=== PATIENT | female | born 1935 | race Caucasian/White ===

== ENCOUNTER 2024-06-13 12:16 | Outpatient (AMB) | payer OTHER, SELFPAY ==
--- NOTE | 2024-06-13 12:24 | MHC.OFFVIS ---
Vital Signs 06/13/24 12:26 Height 5 ft 4 in Weight 174 lb 2.643 oz BMI 29.9 BP 131/68 Blood Pressure Location Rt brachial Position Sitting Pulse 69 Intake Visit Reasons: Dysphagia Intake Note: Patient in office today for dysphagia. CC: Patient c/o sore throat, sometimes choking with foods and when taking her pills. She also reports increased phlegm, and seeing blood when she spits out. Per patient she has an introluminal polyp in her esophagus. Onset of symptoms about a year ago per patient. Patient has never had a colonoscopy done. Regional Engagement Consultant Required: No Accompanied by: Daughter Allergies No Known Drug Allergies Allergy (Unknown, Verified 06/13/24 12:33) none HPI Comments Details: 89 y.o F with PMH of Afib on eliquis, CHF, HTN, hx of TIA, chronic pericardial effusion who is here for abnl barium swallow. Reports a year of chronic cough with sensation of sputum in upper throat that she has to clear and when she does spit up sees streaks of blood. Sx are most pronounced in the morning with pain in upper throat. Was seen by ENT and pulm. Had barium swallow which showed a an intraluminal lower esophagus polyp for which direct visualization was recommended. Of note referral states rectal bleeding but pt reports NO rectal bleeding. Only upper GI sx as above. No fam hx of crc. Pt has never had a colo. Ex smoker. PFSH Surgical History H/O angioplasty Total knee replacement status H/O: hysterectomy Family History Daughter Thyroid cancer Father Testicular cancer Social History Alcohol intake: current Alcohol intake frequency: holidays/special occasions only Patient Tobacco Use Status: Former Tobacco user Non Cigarette Tobacco use Quit date or years: 50 years ago Use of substances other than those prescribed or required for medical reasons: No Physical Exam Vital Signs: Last Vital Signs Pulse 69 06/13/24 12:26 BP 131/68 06/13/24 12:26 BMI result Body Mass Index 29.9 Assessment & Plan Assessment & Plan (1) Esophageal polyp: Code(s): K22.81 - Esophageal polyp Category: Medical (2) Atrial fibrillation: Code(s): I48.91 - Unspecified atrial fibrillation Category: Medical (3) Chronic anticoagulation: Code(s): Z79.01 - nursing home (current) use of anticoagulants Category: Medical Plan 1. Describes hemoptysis and not hematemesis. Reviewed with the pt that based on the barium swallow result and location of the polyp, does not appear the cause of her chronic cough - no reflux noted on barium study. No narrowing noted. Barium pill passed without difficulty. THe polyp is in lower esophagus. However will get direct visualisation with empiric dilation of UES to see if that helps symptoms. Pt aware to HOLD eliquis x2 days. Will also request clearance from cardiology. Pt with hx of CHF and large pericardial effusion. Omeprazole 20 mg trial in the meantime. Follow up after EGD Medications: New omeprazole 20 mg PO DAILY 90 caps 1RF Coding Level of Care Code New Pt Level 4 (73578) Diagnoses Esophageal polyp K22.81 Atrial fibrillation I48.91 Chronic anticoagulation Z79.01
[2024-06-13 12:26] VITALS: BP 131/68; PULSE 69; BMI 29.9
== END 2024-06-13 13:25 | disposition home or self-care (01) ==
PROVIDERS: PCP Internal Medicine; Visit Provider Internal Medicine
DX: K22.81 Esophageal polyp (principal); I48.91 Unspecified atrial fibrillation; Z79.01 Long term (current) use of anticoagulants
CPT/HCPCS: 99204

== ENCOUNTER → 2024-06-13 12:16 | Outpatient (BNVA) | payer OTHER, SELFPAY | PROVIDERS: PCP Internal Medicine; Visit Provider Internal Medicine ==

== ENCOUNTER 2024-08-02 10:08 | Day surgery (SDC) | payer MEDICARE, SELFPAY ==
[2024-07-29 11:38] VITALS: BMI 29.9
[2024-08-02 10:37] VITALS: BP 131/67; PULSE 69; RESP 20; TEMP 36.6; O2SAT 97
--- NOTE | 2024-08-02 10:49 | HO.ANESPROP2 ---
HPI - Anesthesia Eval Consult details Narrative: 89 yo female patient for EGD with dilatation PMFSH Active Problems Active Problems: All Active Problems Chronic anticoagulation (Acute) Atrial fibrillation (Acute). Last dose of eliquis 07/30/24 Esophageal polyp (Acute) H/o CHF last year H/o TIA- years ago Past Medical History Medical History Chronic pericardial effusion TIA (transient ischemic attack) HTN (hypertension) CHF (congestive heart failure) Afib Family History Family History Daughter Thyroid cancer Father Testicular cancer Family history of problems with anesthesia: No Surgical History Surgical History H/O angioplasty Total knee replacement status H/O: hysterectomy History of Problems with Anesthesia: No Social History Social History Alcohol intake: current Alcohol intake frequency: holidays/special occasions only Patient Tobacco Use Status: Former Tobacco user Advance Directives: No Advance Directives Information Provided: Yes Advance Directives on File: No Meds Allergies Allergy/AdvReac Type Severity Reaction Status Date / Time No Known Drug Allergies Allergy Unknown none Verified 06/13/24 12:33 Home Medications ?Medication ?Instructions ?Recorded ?Confirmed ?Last Taken ?Type apixaban 5 mg tablet (Eliquis) 5 mg PO BID 06/13/24 08/02/24 07/30/24 History ascorbate calcium (vitamin C) 500 500 mg PO DAILY 06/13/24 08/02/24 08/01/24 History mg tablet atorvastatin 80 mg tablet 80 mg PO DAILY 06/13/24 08/02/24 08/01/24 History calcium carbonate 1,250 mg PO BID 06/13/24 08/02/24 08/01/24 History cholecalciferol (vitamin D3) 50 50 mcg PO DAILY 06/13/24 08/02/24 08/01/24 History mcg (2,000 unit) capsule cranberry 1,000 mg capsule 4,200 mg PO DAILY 06/13/24 08/02/24 08/01/24 History diltiazem HCl 120 mg 120 mg PO DAILY 06/13/24 08/02/24 08/02/24 History capsule,extended release 24 hr furosemide 20 mg tablet 20 mg PO DAILY 06/13/24 08/02/24 08/01/24 History loratadine 10 mg tablet (Allergy 10 mg PO DAILY 06/13/24 08/02/24 08/01/24 History Relief (loratadine)) metoprolol tartrate 100 mg tablet 100 mg PO BID 06/13/24 08/02/24 08/02/24 History Exam Height,Weight and Vital Signs: Height 5 ft 4 in Weight 78.925 kg Last Vital Signs Temp 98 F 08/02/24 10:37 Pulse 69 08/02/24 10:37 Resp 20 08/02/24 10:37 BP 131/67 08/02/24 10:37 Pulse Ox 97 08/02/24 10:37 O2 Del Method Room Air 08/02/24 10:37 Airway Mallampati Class: II TM Dist: >3cm Neck ROM: Full Denture: Upper Loose/Missing/Broken Teeth: Yes (Full denture top. No teeth bottom) Heart: Irregularly irregular Lungs: CTAB Assessment and Plan Assessment Anesthesia Assessment: Anesthesia Plan Discussed and Chart Reviewed Final Anesthetic Review Family History of Problems with Anesthesia: No History of Problems with Anesthesia: No NPO: Yes ASA Class: III Final Preanesthetic Review: No Changes in Pt Med Stat, Meds/Allgs Chart Reviewed, Consent Obtained/Reviewed and Anes Risks/Benef Reviewed Patient Risk: Intermediate Procedure Risk: Low Assessment/Block/Sedation in SS: Assess/Block/Sedation-SS Anesthetic Plan Anesthetic Plan: TIVA Disposition: Standard PACU
--- NOTE | 2024-08-02 11:49 | MHC.SHP ---
Pre-Procedural Eval Section A - 24 Hr Update-Section A only Date of Service: 08/02/24 Section B - Complete if H&P > 30 days Chief Complaint: Esophageal polyp Details of Present Illness: H/O angioplasty Total knee replacement status H/O: hysterectomy Family History Daughter Thyroid cancer Father Testicular cancer Present Medications: see Short Stay Collaborative assessment Allergies: Allergies Allergy/AdvReac Type Severity Reaction Status Date / Time No Known Drug Allergies Allergy Unknown none Verified 06/13/24 12:33 Review of Systems Review of Systems Comment: Ten point ROS negative Exam Exam Comment: Gen appear: No acute distress HEENT: no icterus Chest: No overt resp distress Abd: soft, nontender, nondistended Psych: Stable affect, answering questions appropriately Neuro: A/Ox3 noted to move all extremities spontaneously Ext: no peripheral edema Plan Diagnosis/Plan: Unchanged I have reviewed the history and physical and performed a pertinent physical examination on my patient. No changes have occurred unless specified. Time Spent With Patient Time: Total time managing care of this patient today ____ minutes.
--- NOTE | 2024-08-02 13:03 | P.OP_ITS ---
Operative Note Operative Note Date of Service: 08/02/24 Narrative: Procedure: Esophagogastroduodenoscopy Endoscopist: Micaela Smiley MD Indication: Dysphagia, esophageal polyp Anesthesia Provider: Karuna Castanon CRNA Anesthesia Type: MAC ?? EGD Procedure:?? The procedure, indications, preparation and potential complications were reviewed with the patient, who indicated understanding and gave written informed consent to proceed. A physical exam was performed. The endoscope was introduced through the mouth, and advanced to the second part of duodenum. The mucosa was carefully examined on slow withdrawal of the endoscope. The patient tolerated the procedure well. There were no immediate complications.? ? EGD Findings:? * Esophagus:? Normal mucosa noted in the entire esophagus. The Z line was at 40 cm and irregular up to 38 cm. Middle and lower esophagus forceps biopsies were obtained to rule out eosinophilic esophagitis. A small hiatal hernia was noted. * Stomach:? Erythema and edema was noted in the cardia. Retroflexion was performed in the cardia and Hill grade III hiatal hernia was noted. * Duodenum:? There was a small 1 cm raised nodule in the second portion of the duodenum. Additional intervention: A soft tipped Savary wire was advanced through the biopsy channel and advanced to the antrum. A savary mita bougie was advanced over the guidewire and the esophagus was dilated to 18 mm. On relook there was a small superficial tear in the upper esophagus at 18 cm from the incisors. ? EGD Impressions:? * UES stricture (biopsy) * Gastritis * Hiatal hernia * Duodenal polyp (biopsy) ?? Recommendations:?? * An esophageal polyp was not appreciated on this exam * Dysphagia likely due to cricopharyngeal narrowing which was dilated today * Will obtain CT neck as pt reports neck tenderness and soreness * Resume anticoagulation in PM * Avoid NSAIDs. Above has been reviewed with the patient.
[2024-08-02 13:11] VITALS: BP 102/56; PULSE 77; RESP 16; TEMP 36.1; O2SAT 97
[2024-08-02 13:26] VITALS: BP 109/65; PULSE 66; RESP 16; O2SAT 97
[2024-08-02 13:41] VITALS: BP 117/63; PULSE 62; RESP 16; TEMP 36.1; O2SAT 96
== END 2024-08-02 14:32 | disposition home or self-care (01) ==
PROVIDERS: PCP Internal Medicine; Visit Provider Internal Medicine
PROC: (CPT 43248; principal; 2024-08-02 13:10)
DX: K22.81 Esophageal polyp (principal); R13.10 Dysphagia, unspecified; K22.2 Esophageal obstruction; K29.70 Gastritis, unspecified, without bleeding; K44.9 Diaphragmatic hernia without obstruction or gangrene; I48.91 Unspecified atrial fibrillation; I11.0 Hypertensive heart disease with heart failure; I50.9 Heart failure, unspecified; I31.39 Other pericardial effusion (noninflammatory); Z87.891 Personal history of nicotine dependence; Z79.01 Long term (current) use of anticoagulants; Z79.899 Other long term (current) drug therapy; Z86.73 Personal history of transient ischemic attack (TIA), and cerebral infarction without residual deficits; Z98.890 Other specified postprocedural states
CPT/HCPCS: 43248; 43239; 88305; 88313; C1769; J1100; J1596; J2003; J2704

== ENCOUNTER → 2024-08-02 10:08 | Outpatient (BNV) | payer MEDICARE, SELFPAY | PROVIDERS: PCP Internal Medicine; Visit Provider Internal Medicine | DX: K31.7 Polyp of stomach and duodenum (principal); R13.10 Dysphagia, unspecified | CPT/HCPCS: 43239; 43248 ==

== ENCOUNTER 2024-08-15 12:30 | Outpatient (AMB) | payer MEDICARE, SELFPAY ==
--- NOTE | 2024-08-15 12:32 | MHC.OFFVIS ---
Vital Signs 08/15/24 12:34 Height 5 ft 4 in Weight 169 lb 12.095 oz BMI 29.1 BP 146/73 H Blood Pressure Location Lt brachial Position Sitting Pulse 74 Intake Visit Reasons: s/p egd dilation Intake Note: More presents in the office as a follow up EGD w/ Dil. CC: She states that after procedure she had some phlegm and a burn in her throat but I let her know that it was probably due to the biopsy taken. Corporate Physical Security Supervisor Required: No Allergies No Known Drug Allergies Allergy (Unknown, Verified 08/15/24 12:40) none HPI Comments Details: 89 y.o F with PMH of Afib on eliquis, CHF, HTN, hx of TIA, chronic pericardial effusion who is here for abnl barium swallow. Reports a year of chronic cough with sensation of sputum in upper throat that she has to clear and when she does spit up sees streaks of blood. Sx are most pronounced in the morning with pain in upper throat. Was seen by ENT and pulm. Had barium swallow which showed a an intraluminal lower esophagus polyp for which direct visualization was recommended. Of note referral states rectal bleeding but pt reports NO rectal bleeding. Only upper GI sx as above. No fam hx of crc. Pt has never had a colo. Ex smoker. 08/02/24: Esophagus:? Normal mucosa noted in the entire esophagus. The Z line was at 40 cm and irregular up to 38 cm. Middle and lower esophagus forceps biopsies were obtained to rule out eosinophilic esophagitis. A small hiatal hernia was noted. Stomach:? Erythema and edema was noted in the cardia. Retroflexion was performed in the cardia and Hill grade III hiatal hernia was noted. Duodenum:? There was a small 1 cm raised nodule in the second portion of the duodenum. Additional intervention: A soft tipped Savary wire was advanced through the biopsy channel and advanced to the antrum. A savary mita bougie was advanced over the guidewire and the esophagus was dilated to 18 mm. On relook there was a small superficial tear in the upper esophagus at 18 cm from the incisors. Path: A. Duodenum, polypectomy: Superficial fragments of small intestinal mucosa with chronic inflammatory changes. B. GE junction, biopsy: - Heredia esophagus with background mild chronic inactive inflammation. - No dysplasia seen. - Squamous mucosa within normal limits. C. Esophagus, middle, biopsy: Squamous epithelium within normal limits; no inflammation seen 08/15/24: Here for post EGD follow up. Reports resolution of throat discomfort and difficulty swallowing. Does report persistent sensation of soreness in L side of her neck not related to swallowing. In addition, also continues to feel the need to frequently clear her throat gene when she gets up in the morning. [facility] Medical History (Updated 08/15/24 @ 16:40 by Micaela Smiley MD) Chronic pericardial effusion TIA (transient ischemic attack) HTN (hypertension) CHF (congestive heart failure) Afib Surgical History (Updated 08/15/24 @ 12:40 by ELLE Rm) History of esophagogastroduodenoscopy (EGD) H/O angioplasty Total knee replacement status H/O: hysterectomy Family History Daughter Thyroid cancer Father Testicular cancer Social History Alcohol intake: current Alcohol intake frequency: holidays/special occasions only Patient Tobacco Use Status: Former Tobacco user Review of Systems Const All systems reviewed & are unremarkable except as noted in HPI and below Physical Exam Vital Signs: Last Vital Signs Pulse 74 08/15/24 12:34 BP 146/73 H 08/15/24 12:34 BMI result Body Mass Index 29.1 No apparent distress Nonicteric Palpable LN on LEFT ant cervical chain Abdomen soft, nondistended Alert and oriented x3, normal gait Assessment & Plan Assessment & Plan (1) Dysphagia: Code(s): R13.10 - Dysphagia, unspecified Category: Medical (2) Cervical lymphadenopathy: Code(s): R59.0 - Localized enlarged lymph nodes Category: Medical Plan 1. Resolution of dysphagia since dilation of cricopharyngeal stenosis. Pt aware to call us PRN for recurrence of sx. 2. Cervical lymphadenopathy Has persistent neck soreness and wonder if related to palpable LN in neck. CT neck ordered - will follow up. If + enlarged LN, pt will be referred to heme/onc. Follow up in 1 year Coding Level of Care Code Est Pt Level 4 (19692) Diagnoses Dysphagia R13.10 Cervical lymphadenopathy R59.0
[2024-08-15 12:34] VITALS: BP 146/73; PULSE 74; BMI 29.1
== END 2024-08-15 13:18 | disposition home or self-care (01) ==
PROVIDERS: PCP Internal Medicine; Visit Provider Internal Medicine
DX: R13.10 Dysphagia, unspecified (principal); R59.0 Localized enlarged lymph nodes
CPT/HCPCS: 99214

== ENCOUNTER → 2024-08-15 12:30 | Outpatient (BNVA) | payer MEDICARE, SELFPAY | PROVIDERS: PCP Internal Medicine; Visit Provider Internal Medicine | DX: R13.10 Dysphagia, unspecified (principal); R59.0 Localized enlarged lymph nodes | CPT/HCPCS: 99212 ==

== ENCOUNTER 2024-09-16 08:54 | Outpatient (REF) | payer MEDICARE, SELFPAY ==
[2024-09-16 10:05] LABS: Anion Gap 14 (12-20); Blood Urea Nitrogen 15 mg/dL (9-16); Calcium 9.2 mg/dL (8.4-10.2); Carbon Dioxide 25 mmol/L (22-29); Chloride 107 mmol/L (96-108); Estimated Glomerular Filt Rate > 60; Glucose Random 136 mg/dL (60-115); Potassium 3.4 mmol/L (3.3-5.1); Sodium 143 mmol/L (135-145)
== END 2024-09-16 08:55 | disposition home or self-care (01) ==
LOC: HO.LAB 08:54
PROVIDERS: PCP Internal Medicine; Visit Provider Internal Medicine
DX: R13.10 Dysphagia, unspecified (principal)
CPT/HCPCS: 36415; 80048

== ENCOUNTER 2024-10-04 15:32 | Outpatient (REF) | payer MEDICARE, SELFPAY ==
--- NOTE | ~2024-10-04 | CT_ITS ---
CLINICAL HISTORY: R13.10 - Dysphagia, unspecified CT soft tissue neck with contrast Comparison: None Findings: The visualized intracranial contents are unremarkable. No prevertebral fluid. Epiglottis is within normal limits. Pharyngeal mucosal space and parapharyngeal fat are within normal limits. Reference sagittal image 36, there is a prominent cricopharyngeus muscle. No significant adenopathy. The thyroid gland is enlarged and does contain multiple nodules. Salivary glands are unremarkable. No sialoliths. There is moderate to severe multilevel degenerative change throughout the cervical spine. Lung apices demonstrate mild centrilobular emphysema. IMPRESSION: There is a somewhat prominent cricopharyngeus muscle, which can be a source of dysphagia. Otherwise, no acute process. Multiple thyroid nodules. Outpatient ultrasound if indicated. This document has been electronically signed by: Jamshid Hannah MD on 10/05/2024 11:43:07
[2024-10-04] MEDS: iohexoL 350 MG/ML 100 ML INFUS..BTL 60 ML IV (16:26)
== END 2024-10-04 15:33 | disposition home or self-care (01) ==
LOC: HO.CT 15:32
PROVIDERS: PCP Internal Medicine; Visit Provider Internal Medicine
DX: R13.10 Dysphagia, unspecified (principal); R59.0 Localized enlarged lymph nodes
CPT/HCPCS: 70491; Q9967

== ENCOUNTER → 2024-10-04 15:34 | Outpatient (BNV) | payer MEDICARE, SELFPAY | PROVIDERS: PCP Internal Medicine; Visit Provider Radiology Vascular & Interventional Radiology | DX: R13.10 Dysphagia, unspecified (principal) | CPT/HCPCS: 70491 ==

== ENCOUNTER 2025-09-20 14:17 | Outpatient (AMB) | payer MEDICARE, SELFPAY ==
--- NOTE | 2025-09-20 14:22 | A.OFFVIS_ITS ---
Vital Signs 09/20/25 14:29 Height 5 ft 4 in Weight 178 lb 9.191 oz BMI 30.6 BP 194/88 H Blood Pressure Location Lt radial Position Sitting Pulse 70 Intake Visit Reasons: 1 year f/u Intake Note: More presents in the office as a 1 year follow up. CC: States that this is a routine folow up - no concerns. Allergies No Known Drug Allergies Allergy (Unknown, Verified 09/20/25 14:32) none HPI Comments Details: 89 y.o F with PMH of Afib on eliquis CHF, HTN, hx of TIA, chronic pericardial effusion who is presenting for routine follow-up visit for management of an esophageal stricture. Here with her daughter. 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 Currently, she denies difficulty swallowing solid foods but reports a constant need to clear thick secretions from her throat and occasional difficulty swallowing pills. She had been making a journal of her symptoms and does not think they occur even once a month. She takes omeprazole 20 daily. Pt otherwise doing well, community dwelling. Pt was informed and consented to the use of ambient scribe for this encounter. [facility] Medical History Chronic pericardial effusion TIA (transient ischemic attack) HTN (hypertension) CHF (congestive heart failure) Afib Surgical History History of esophagogastroduodenoscopy (EGD) H/O angioplasty Total knee replacement status H/O: hysterectomy Family History Daughter Thyroid cancer Father Testicular cancer Social History Alcohol intake: current Alcohol intake frequency: holidays/special occasions only Patient Tobacco Use Status: Former Tobacco user Review of Systems Narrative Review of Systems - Throat: Reports a constant need to clear her throat of thick secretions, occasional sore throat, and occasional dysphagia with pills. - Denies difficulty swallowing solid food. - Neck: Reports history of soreness and swelling on the left side. - Endocrine: Reports presence of thyroid nodules. - Gastrointestinal: Denies heartburn. - Reports GI upset with potassium supplements. - Integumentary: Reports dry skin. Physical Exam Exam Exam: Physical Exam No apparent distress Nonicteric Abdomen soft, nondistended Alert and oriented x3, uses a cane to ambulate Vital Signs: Last Vital Signs Pulse 70 09/20/25 14:29 BP 194/88 H 09/20/25 14:29 BMI result Body Mass Index 30.6 Assessment & Plan Assessment & Plan (1) Dysphagia: Code(s): R13.10 - Dysphagia, unspecified Category: Medical (2) Cricopharyngeal dysphagia: Code(s): R13.13 - Dysphagia, pharyngeal phase (3) Chronic anticoagulation: Code(s): Z79.01 - senior care (current) use of anticoagulants Category: Medical Plan Assessment and Plan 1. Cricpopharyngeal dysphagia The patient is status post esophageal dilation one year prior with significant symptomatic improvement. Reports has some symptoms including the need to clear throat and occasional dysphagia with pills, though swallowing solid food is unaffected. She has opted to monitor her symptoms and will defer a repeat EGD with dilation for now. Plan: - She was advised to call to schedule the procedure if symptoms begin to occur more frequently. - Of note, on eliquis for Afib and will need to hold this x2 days. - Pt also on omeprazole 20 for GERD. Given age and risk for osteopenia, will switch this to famotidine 20 once daily. Follow up 1 year as per pt's request. Medications: New famotidine 20 mg PO BEDTIME 90 tabs 1RF famotidine 20 mg PO BEDTIME 90 tabs 2RF Discontinued omeprazole Discontinued Reason: Doctor's Order 20 mg PO DAILY 90 caps 1RF Coding Level of Care Code Est Pt Level 4 (39681) Diagnoses Dysphagia R13.10 Cricopharyngeal dysphagia R13.13 Chronic anticoagulation Z79.01
[2025-09-20 14:29] VITALS: BP 194/88; PULSE 70; BMI 30.6
--- OUTSIDE RECORDS SUMMARY | 2025-09-20 15:28 | XMS_ITS | Clinical Summary ---
Author Organization [address] [place] [address] Address [address] [place] [address] Phone Care Team Providers Care Director Family Name Role Phone Carlos Miramontes MD Primary Care Provider [phone] Allergies No known active allergies Medications calcium carbonate 470 mg calcium (1,177 mg) tablet,chewabl e Chew 1 tablet 1 (one) time each day. Active furosemide (LASIX) 20 mg tablet Take 1 tablet (20 mg total) by mouth every other day. Active atorvastatin (LIPITOR) 80 mg tablet Take 1 tablet (80 mg total) by mouth 1 (one) time each day. Active CRANBERRY ORAL Take by mouth 1 (one) time each day. Active CHOLECALCIFERO L, VITAMIN D3, ORAL Take 2,000 Units by mouth daily. Active multivit-min/v it C/herb no.124 (AIRBORNE, ASCORBIC ACID, ORAL) Take by mouth. Active omeprazole (PriLOSEC) [address] capsule Take 1 capsule (20 mg total) by mouth 1 (one) time each day. Do not crush or chew. Active Eliquis 5 mg tablet TAKE ONE TABLET BY MOUTH TWICE A DAY 180 tablet 3 4 Active metoprolol tartrate (LOPRESSOR) 100 mg tablet TAKE ONE TABLET BY MOUTH TWICE A DAY 180 tablet 3 5 Active spironolactone (ALDACTONE) 25 mg tablet Take 1 tablet (25 mg total) by mouth 1 (one) time each day. 90 each 5 07/17/20 26 Active magnesium 200 mg tablet Take 1 tablet by mouth 1 (one) time each day. Take 200-400 mg daily Active DILT-XR 180 mg 24 hr capsule TAKE ONE CAPSULE BY MOUTH EVERY DAY 90 capsule 3 5 Active DILT-XR 180 mg 24 hr capsule TAKE ONE CAPSULE BY MOUTH EVERY DAY 90 capsule 3 4 09/11/20 25 Discontinued Active Problems Problem Noted Date Diagnosed Date Permanent atrial fibrillation 08/20/2023 Overview (07/17/2025): - On Eliquis for CVA prophylaxis and diltiazem and metoprolol for rate control Assessment & Plan (09/05/2024 9:45 AM EST): Continue Eliquis for CVA prophylaxis and diltiazem for rate control. Patient has a sufficiently low enough risk where if she needs procedures, she should be able to hold Eliquis for 48-72 hours prior to procedure (depending on the inherent risk of bleeding related to the procedure) without a bridge and resume as soon as safely possible. 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 BNP elevated. -Initial echocardiogram obtained during her hospitalization showed low normal LVEF 50-55%, biatrial lodgment, mildly dilated RV with mild RV dysfunction, moderate predominantly posterior pericardial effusion with prominent anterior epicardial fat pad most likely with no evidence of tamponade, dilated and noncompressible IVC consistent with high right atrial pressure, and no hemodynamically significant valve disease. -Dr. Hair felt that her pericardial effusion was likely related to underlying pulmonary hypertension from elevated left-sided filling pressures over time -However, her pericardial effusion expanded, and though she did not have clear- cut symptoms of pericarditis, she was treated with colchicine given elevated ESR and CRP. CT chest showed large volume pericardial effusion but decreased since prior CT. no pericardiocentesis was completed and apixaban was resumed - treated with colchicine once daily due to GI side effects - Most recent echo under HFpEF section Hypertension 08/20/2023 Overview (08/09/2024): Last Assessment & Plan: Patient's blood pressure is well-controlled on current medication regimen of calcium channel sonal, beta-sonal and diuretic. Continue the same Assessment & Plan (09/05/2024 9:45 AM EST): Generally well-controlled on current dual AV zenon blocking agents. She was a bit high today but I suspect whitecoat hypertension. Continue to monitor at home periodically and during other office visits. Hyperlipidemia 08/20/2023 Overview (08/09/2024): Last Assessment & Plan: We do not have a recent lipid profile. If one can be forwarded from her PCPs office, we would appreciate it. Continue statin at current dose. Assessment & Plan (09/05/2024 9:45 AM EST): Continue high-dose atorvastatin Chronic heart failure with preserved ejection fr action 08/20/2023 Overview (07/17/2025): - NYHA class II symptoms at baseline - Most recent echo on 12/31/2023 showing mild concentric LV hypertrophy with normal cavity size and systolic function, normal regional wall motion with an ejection fraction of 55 to 60%, moderate RV enlargement with moderately reduced systolic function, no hemodynamically significant valve disease, severe biatrial enlargement, normal PA systolic pressure, dilated ascending aorta at 4.1 cm, area of homogenous echodense material in the posterior pericardial space-likely scar tissue located in the space of a previously noted pericardial effusion with trivial adjacent pericardial effusion, prominent anterior epicardial fat pad-all other findings unchanged from 2022 Assessment & Plan (09/05/2024 9:45 AM EST): Euvolemic on exam today with stable symptoms and no heart failure hospitalizations, continue low-dose Lasix therapy Encounters Date Type Department Care Team Description 09/05/2025 Telephone [facility] [address] [place] [address] Cyrus Fernandez NP 07/17/2025 9:20 AM EDT Office Visit [facility] [address] [facility] [address] [place] [id number] Yareli Hair MD Chronic heart failure with preserved ejection fraction (CMS/HCC V24, CMS/HCC V28) (Primary Dx); Permanent atrial fibrillation (CMS/HCC V24, CMS/HCC V28); Primary hypertension from Last 3 Months Family History Medical History Relation Name Comments CABG Father Heart attack Father Relation Name Status Comments Father Sister Social History Tobacco Use Types Packs/Day Years Used Date Smoking Tobacco: Former Smokeless Tobacco: Never Tobacco Cessation:Counseling Given: Not Answered Comments:Quit in 1984 Alcohol Use Standard Drinks/Week Comments Yes 0 (1 standard drink = 0.6 oz pur e alcohol) occasionally Comments Unknown Sex and Gender Information Value Date Recorded Sex Assigned at Not on file Legal Sex Female 9:04 PM EST Gender Identity Not on file Sexual Orientation Not on file Last Filed Vital Signs Vital Sign Reading Time Taken Comments Blood Pressure 162/90 07/17/2025 9:11 AM EDT Pulse 73 07/17/2025 9:11 AM EDT Temperature - - Respiratory Rate - - Oxygen Saturation 98% 07/17/2025 9:11 AM EDT Inhaled Oxygen Concentration - - Weight 84.8 kg (187 lb) 07/17/2025 9:11 AM EDT Height 162.6 cm (5' 4 ) 07/17/2025 9:11 AM EDT Body Mass Index 32.1 07/17/2025 9:11 AM EDT Plan of Treatment Upcoming Encounters Date Type Department Care Team (Late st Contact Info) Description 11/29/2025 10:40 AM EDT Office Visit [facility] [address] [facility] [address] [place] [phone] Cyrus Fernandez NP [address] [place] [place] [phone] Health Maintenance Due Date Last Done Comments DTaP,Tdap,and Td Vaccines (1 - Tdap) 1954 Pneumococcal Vaccine: 50+ Years (1 of 2 - PCV) 1954 Zoster Vaccines (1 of 2) 1987 Cholesterol Screening (Lipid Panel) 10/16/2023 Falls Risk Assessment 10/16/2023 Medicare Annual Wellness Visit 10/16/2023 Osteoporosis Screening (Bone Density Screening) 10/16/2023 Social Influencers of Health Screening 10/16/2023 Hypertension/CHF/CAD Annual BMP Blood Test 07/20/2024 Depression Screening 09/21/2024 COVID-19 Vaccine ( season) 2025 07/19/2024, 07/08/2022, 01/18/2022, Additional history exists Influenza Vaccine (#1) 2025 , 07/08/2022, 07/17/2021, Additional history exists RSV Immunization Adult Patients Completed 10/08/2024 HIB Vaccines Aged Out No longer eligi ble based on patient's age to complete this topic HPV Vaccines Aged Out No longer eligi ble based on patient's age to complete this topic Hepatitis A Vaccines Aged Out No long er eligible based on patient's age to complete this topic Hepatitis B Vaccines Aged Out No long er eligible based on patient's age to complete this topic IPV Vaccines Aged Out No longer eligi ble based on patient's age to complete this topic MMR Vaccines Aged Out No longer eligi ble based on patient's age to complete this topic Meningococcal ACWY Vaccine Aged Out N o longer eligible based on patient's age to complete this topic Meningococcal B Vaccine Aged Out No l onger eligible based on patient's age to complete this topic RSV Immunization Patients Under 20 months Aged Out No longer eligible based on patient's age to complete this topic Varicella Vaccines Aged Out No longer eligible based on patient's age to complete this topic Procedures Procedure Name Priority Date/Time Associated Diagnosis Comments ECG 12-LEAD Routine 07/17/2025 9:16 AM EDT Permanent atrial fibrillation (CMS/HCC V24, CMS/HCC V28) EXTERNAL CLINICAL LAB Routine 07/12/2025 9:05 AM EDT from Last 3 Months Results * ECG 12 lead (07/17/2025 9:16 AM EDT) Ventricular Rate ECG 73 BPM GEMUSE Atrial Rate 86 BPM GEMUSE QRS Duration 78 ms GEMUSE Q-T Interval 424 ms GEMUSE QTc 467 ms GEMUSE R [place] -5 degrees GEMUSE T [place] 72 degrees GEMUSE ECG Interpretation Atrial fibrillation with premature ventricular or aberrantly conducted complexes Minimal voltage criteria for LVH, may be normal variant Nonspecific ST and T wave abnormality When compared with ECG of 10-AUG-2024 09:00, Nonspecific T wave abnormality now evident in Inferior leads Confirmed by YARELI HAIR ([id number]) on 08/27/2025 10:38:43 PM GEMUSE 07/17/2025 9:16 AM EDT 08/27/2025 10:38 PM EST Cyrus Fernandez NP ECG ORDERABLES Final Result GEMUSE * External clinical lab (07/12/2025 9:05 AM EDT) Historical Provider LAB BLOOD ORDERABLES Edit ed Result - Final from Last 3 Months Insurance [employer] MED[employer]ARE Care Teams Director Family Relationship Specialty Start Date End Date Carlos Miramontes MD [address] [place] [address] [facility] - General 04/24/13
== END 2025-09-20 15:09 | disposition home or self-care (01) ==
LOC: HO.HGI 14:17
PROVIDERS: PCP Internal Medicine; Visit Provider Internal Medicine
DX: R13.10 Dysphagia, unspecified (principal); R13.13 Dysphagia, pharyngeal phase; Z79.01 Long term (current) use of anticoagulants
CPT/HCPCS: 99214

== ENCOUNTER → 2025-09-20 14:17 | Outpatient (BNVA) | payer MEDICARE, SELFPAY | PROVIDERS: PCP Internal Medicine; Visit Provider Internal Medicine | DX: R13.13 Dysphagia, pharyngeal phase (principal); I10 Essential (primary) hypertension; Z79.01 Long term (current) use of anticoagulants; Z87.891 Personal history of nicotine dependence | CPT/HCPCS: 99212 ==